=== PATIENT | female | born 1960 | race Caucasian/White ===

== ENCOUNTER 2017-05-27 16:00 | Outpatient (RCR) | payer BC | END 2017-05-27 16:37 | disposition home or self-care (01) | PROVIDERS: ATTEND Orthopaedic Surgery | DX: Z47.1 Aftercare following joint replacement surgery (principal); Z96.651 Presence of right artificial knee joint ==

== ENCOUNTER 2018-03-09 11:03 | Outpatient (RCR) | payer BC | END 2018-04-02 08:37 | disposition home or self-care (01) | PROVIDERS: ATTEND Family Medicine | DX: M25.551 Pain in right hip (principal) ==

== ENCOUNTER → 2020-05-28 | Outpatient (CLI) | payer BC ==
--- NOTE | 2020-05-28 16:19 | Diagnostic Imaging Report ---
EXAMINATION: PA and lateral chest at 4:07 AM INDICATION: Pneumonia, COVID There are no prior studies available for comparison. The heart size is within normal limits. There are diffuse alveolar/interstitial pulmonary infiltrates involving both lungs, particularly the left lung base. This appearance does suggest pneumonia/atelectasis and is most likely related to the patient's diagnosis of COVID-19. There is no pleural effusion identified. The mediastinum is not widened. The osseous structures are intact. IMPRESSION: 1. There are diffuse areas of pneumonia/atelectasis involving both lungs, particularly the left lung base. These findings are most likely due to COVID-19. 2. A follow-up exam would be recommended for continued evaluation. Dictated by: Dictated on workstation # [id number]
== END ==
LOC: RAD 15:48
PROVIDERS: ATTEND Nurse Practitioner Family
DX: U07.1 COVID-19 (principal); J12.82 Pneumonia due to coronavirus disease 2019
CPT/HCPCS: 71046

== ENCOUNTER → 2020-06-04 | Outpatient (CLI) | payer BC ==
--- NOTE | 2020-06-04 12:11 | Diagnostic Imaging Report ---
INDICATION: Pneumonia. Comparison made with prior examination from 05/28/2020 FINDINGS: There are persistent bilateral pulmonary infiltrates left greater than right. There is no pleural effusion or pneumothorax. Mediastinum is unremarkable. Heart size is normal. IMPRESSION: Essentially unchanged bilateral pulmonary infiltrates left greater than right suspect for underlying pneumonia. Dictated by: Dictated on workstation # [id number]
== END ==
LOC: RAD 11:15
PROVIDERS: ATTEND Nurse Practitioner Family
DX: J18.9 Pneumonia, unspecified organism (principal); R91.8 Other nonspecific abnormal finding of lung field
CPT/HCPCS: 71046

== ENCOUNTER → 2020-06-11 | Outpatient (CLI) | payer BC | LOC: RAD 08:40 | PROVIDERS: ATTEND Nurse Practitioner Family | DX: J18.9 Pneumonia, unspecified organism (principal) ==

== ENCOUNTER → 2020-06-11 | Outpatient (CLI) | payer BC ==
--- NOTE | 2020-06-11 08:57 | Diagnostic Imaging Report ---
INDICATION: History of Covid. COMPARISON: 06/04/2020. FINDINGS: Bilateral coarse pulmonary opacities, greater left, appear similar to the previous exam. It is unclear if this is residual pneumonia or chronic lung disease as the sequelae of prior infection. No adverse development. No effusion. No pneumothorax. IMPRESSION: Bilateral coarse pulmonary opacities, scarring versus residual pneumonia. The report was faxed to Infection Control by ester@8:57 AM. Dictated by: Dictated on workstation # [id number]
== END ==
LOC: RAD
PROVIDERS: ATTEND Family Medicine
DX: R91.8 Other nonspecific abnormal finding of lung field (principal); Z86.16 Personal history of COVID-19
CPT/HCPCS: 71046

== ENCOUNTER → 2020-06-18 | Outpatient (CLI) | payer BC ==
--- NOTE | 2020-06-18 10:19 | Diagnostic Imaging Report ---
INDICATION: History of pneumonia. Follow-up. COMPARISON: 06/11/2020 FINDINGS: Frontal and lateral radiographic views of the chest were obtained and again show scattered patchy infiltrates bilaterally. Overall, aeration is mildly improved. There is no large effusion or pneumothorax. Cardiac silhouette and pulmonary vasculature are within normal limits. Osseous structures show no gross acute abnormalities. IMPRESSION: 1. Persistent, but overall mildly improved bilateral infiltrates. Dictated by: Dictated on workstation # [id number]
== END ==
LOC: RAD 09:12
PROVIDERS: ATTEND Nurse Practitioner Family
DX: U07.1 COVID-19 (principal); J12.82 Pneumonia due to coronavirus disease 2019
CPT/HCPCS: 71046

== ENCOUNTER → 2020-06-25 | Outpatient (CLI) | payer BC ==
--- NOTE | 2020-06-25 13:39 | Diagnostic Imaging Report ---
INDICATION: COVID pneumonia followup. PA and lateral chest Comparison made with study from 06/18/2020. There has been considerable clearing of the previously seen infiltrates in the lungs with minimal residual parenchymal changes seen. There is no effusion or pneumothorax. IMPRESSION: Improving bilateral infiltrates. Dictated by: Dictated on workstation # [id number]
== END ==
LOC: RAD 12:54
PROVIDERS: ATTEND Nurse Practitioner Family
DX: R91.8 Other nonspecific abnormal finding of lung field (principal); J12.82 Pneumonia due to coronavirus disease 2019
CPT/HCPCS: 71046